=== PATIENT | male | born 1995 | race Caucasian/White ===

== ENCOUNTER 2019-06-29 21:50 | Emergency (ER) | payer MEDICAID, SELFPAY ==
--- NOTE | ~2019-06-29 | XR_ITS ---
XR hand LT min 3V 06/29/2019 23:21 Indication: Left second finger pain after slamming hand in car door Procedure: 3 views left hand Comparison: No prior studies for comparison. Findings: There is an oblique extra-articular fracture left second proximal phalanx with approximatel y one third bone width ulnar displacement. No other fracture. No significant soft tissue abnormality. No radiopaque foreign bodies. Impression: 1: Oblique displaced extra-articular fracture left second proximal phalanx. Reviewed, dictated and finalized at location A. Impression: 1: Oblique displaced extra-articular fracture left second proximal phalanx.
[2019-06-29 21:57] VITALS: BP 127/98; PULSE 94; RESP 16; TEMP 36.9; O2SAT 97
--- NOTE | 2019-06-29 23:17 | PC.NURSE ---
Upon receiving bedside report from DORYS Daniel, patient was on the phone and stated you guys can wait right there. I am on a very important phone call right now and since I have been waiting on a doctor you can wait too. ED charge nurse Lilian notified.
--- NOTE | 2019-06-29 23:40 | ED.UPPEXIN ---
HPI - Extremity Injury (Upper) General Chief Complaint: Extremity Injury, Upper Stated Complaint: BROKEN L INDEX FINGER Time Seen by Provider: 06/29/19 23:32 Source: patient Mode of arrival: ambulatory Limitations: no limitations History of Present Illness complaint: injury to: finger (left index) Other injuries: none Related Data Home Medications Medication Instructions Recorded Confirmed No Home Medications 06/29/19 06/29/19 Allergies Allergy/AdvReac Type Severity Reaction Status Date / Time cefuroxime Allergy Mild Unknown Verified 06/29/19 22:03 amoxicillin Allergy Unknown Unknown Verified 06/29/19 22:03 Sulfa (Sulfonamide Allergy Unknown Anaphylaxis Verified 06/29/19 22:03 Antibiotics) Review of Systems Review of Systems: All systems reviewed & are unremarkable except as noted in HPI and below PMFSH Past Medical History Medical History (Updated 06/29/19 @ 23:46 by Marce Velasquez MD) No significant past medical history Surgical History Surgical History (Updated 06/29/19 @ 23:42 by Marce Velasquez MD) No significant past surgical history Family History Family History (Updated 10/25/13 @ 07:13 by DOCTOR UNKNOWN) Grandparent Hypertension Father Family history of malignant neoplasm Other Diabetes mellitus Family history of heart disease in male family member before age 55 Social History Social History (Updated 06/29/19 @ 23:43 by Marce Velasquez MD) Smoking status: Current some day smoker Substance use type: marijuana Exam Const: General: cooperative, no acute distress and alert Nutritional Appearance: well nourished Orientation/consciousness: patient oriented x3 Limitations: no limitations Resp: Effort & Inspection: normal respiratory effort Skin: General skin exam: normal color Neuro: General: patient oriented x3 Cognition (Neuro): normal cognition Speech: normal speech Extrem: General: full ROM and no clubbing, cyanosis or edema Left upper extremity: hand tenderness of the 2nd digit and swelling of the 2nd digit Psych: Mental Status: mental status grossly normal Affect: normal affect Attitude: cooperative Course Course Emergency Course: Patient advised diagnosis of left index finger fracture of the proximal phalanx. Splint applied. Patient given pain medicine and will be referred to hand surgery for follow-up care Vital Signs Vital signs: Vital Signs Temperature 98.4 F 06/29/19 21:57 Pulse Rate 94 06/29/19 21:57 Respiratory Rate 16 06/29/19 21:57 Blood Pressure 127/98 H 06/29/19 21:57 Pulse Oximetry 97 06/29/19 21:57 Temperature 98.4 F 06/29/19 21:57 Pulse Rate 94 06/29/19 21:57 Respiratory Rate 16 06/29/19 21:57 Blood Pressure 127/98 H 06/29/19 21:57 Pulse Oximetry 97 06/29/19 21:57 Procedures Orthopedic Splinting/Casting Injury #1: Side: left Upper Extremity Injury Location: finger (2nd) Upper Extremity Immobilizer: aluminum form splint Splint: prefabricated Pre-Formed: metal foam finger splint Pre-Procedure Neuro Vascular Exam: normal Post-Procedure Neuro Vascular Exam: normal MDM - Extremity Injury (Upper) Imaging Data Radiologist's impression: ITS Impressions Hand X-Ray 06/29/19 23:28 Impression: 1: Oblique displaced extra-articular fracture left second proximal phalanx. Critical Care Time Critical Care Time Critical Care Time: No Discharge Plan Discharge Clinical Impression: Fracture of finger of left hand Qualifiers: Encounter type: initial encounter Finger: index finger Fracture type: closed Phalanx: proximal Fracture alignment: displaced Qualified Code(s): S62.611A - Displaced fracture of proximal phalanx of left index finger, initial encounter for closed fracture Patient Disposition: Home, Self-Care Condition: Stable Instructions: Finger Fracture (ED) Additional Instructions: Wear splint. Ice
[2019-06-29] MEDS: ACETAMINOPHEN 500 MG TABLET 1000 MG PO (23:53)
[2019-06-29] MEDS: IBUPROFEN 600 MG TABLET PO (23:54)
[2019-06-30] VITALS: BP 135/91; PULSE 86; RESP 14; TEMP 36.4; O2SAT 95
[2019-06-30 00:17] VITALS: TEMP 36.4
== END 2019-06-30 00:05 | disposition home or self-care (01) ==
PROVIDERS: Emergency Provider Emergency Medicine; PCP Family Medicine
DX: S62.611A Displaced fracture of proximal phalanx of left index finger, initial encounter for closed fracture (principal); F17.200 Nicotine dependence, unspecified, uncomplicated; X58.XXXA Exposure to other specified factors, initial encounter
CPT/HCPCS: 29130; 73130; 99284; A9270

== ENCOUNTER 2019-07-05 00:35 | Day surgery (SDC) | payer MEDICAID, SELFPAY ==
[2019-07-04 14:36] VITALS: BMI 28.4
--- NOTE | 2019-07-04 17:21 | HP_ITS ---
DATE OF SERVICE: 07/05/2019 PREOPERATIVE DIAGNOSIS: Closed displaced extra-articular fracture of the shaft of the left index proximal phalanx. HISTORY: The patient is 23. He is a right-hand dominant male who was at home on June 28 when his left index finger was fractured in a car door. There were no lacerations. He was placed in a bivalve splint and sent for followup. The bivalve splint is barely long enough to support the fracture. The finger is somewhat swollen and we have elected to operate on this after reviewing the x-rays together. It appears that there is no comminution and that a couple of screws would be very beneficial and he could start early range of motion. The benefits of this were made clear to him. The possibility of stiff finger is of course possible despite surgery. There is some possibility of rotatory deformity as well and infection and osteomyelitis. He would like to have this fixed and get back to work as soon as possible. PAST MEDICAL AND SURGICAL HISTORY: He states himself to be allergic to sulfa. He recalls as a small child having his throat swell up to that medication. We noted on his electronic medical record, there is also listed allergy to amoxicillin and cefuroxime. The patient has no recollection of ever having taken those. He does not take any medication on a regular basis. He has not had any prior surgery. He does not list any chronic ailments. He is a nonsmoker. He does admit to some depression and anxiety. FAMILY HISTORY: Noncontributory. SOCIAL HISTORY: Lives in [place]. 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 He resides in [place] with a roommate. PHYSICAL EXAMINATION: GENERAL: He is pleasant and anxious young man, no acute distress. He is 5 feet 5 inches, weighs 175 pounds. He is very informative. HEENT: Exam is unremarkable. CHEST: Clear to auscultation. HEART: Regular rate and rhythm by palpation. ABDOMEN: Soft, nontender. EXTREMITIES: Appear normal, but the right index is very tender and somewhat bruised, and is painful to range of motion actively or passively. DIAGNOSTIC DATA: The x-rays reveal the oblique fracture of the shaft of the proximal phalanx of the left index finger. DIAGNOSIS: Extra-articular, displaced, closed fracture of the left index finger, proximal phalanx. PLAN: The plan is open reduction and internal fixation. D I MT: Steven HERNANDEZ
--- NOTE | ~2019-07-05 | XR_ITS ---
EXAMINATION: XR surgery orthopedic DATE: 07/05/2019 14:07 INDICATION: ORIF left index finger fracture TECHNIQUE: 6 fluoroscopic spot images of the left second proximal phalanx were obtained during proced ure performed by Dr. Cottrell. Radiologist was not present for the imaging or procedure. The amount of f luoroscopy time used during this procedure was 0.5 minutes. COMPARISON: 06/29/2019 FINDINGS: Initial scouts image demonstrates 2 cortical widths ulnar displacement, mild ulnar angulation and julia ral millimeter of the proximal migration of an oblique extra articular fracture at the distal diaphys is of the left second proximal phalanx. Subsequent images demonstrate reduction of the fracture to ne ar-anatomic alignment and fixation with a pair of screws. No other fractures identified. Joint spaces appear normal. IMPRESSION: 1. Near-anatomic alignment post reduction and screw fixation of an oblique extra articular fracture o f the distal left second proximal phalanx. Reviewed, dictated and finalized at location A. IMPRESSION: 1. Near-anatomic alignment post reduction and screw fixation of an oblique extr a articular fracture of the distal left second proximal phalanx.
--- NOTE | 2019-07-05 11:20 | WPDANESEPPF ---
Anes - Initial Pre Proc Eval Procedure: Operation Date: 07/05/19 13:00 Proposed Procedures p Open Reduction Internal Fixation Proximal Phalanx Left Index - Pranav Cottrell MD Date/Time: 07/05/19 11:20 Surgeon: Pranav Cottrell MD Pre Op Diagnosis: Fx Left Proximal Phalanx Index Patient Data Age: 23 Gender: M Height: 5 ft 6 in Weight: 80 kg Allergies Allergy/AdvReac Type Severity Reaction Status Date / Time Sulfa (Sulfonamide Allergy Severe Anaphylaxis Verified 07/04/19 14:34 Antibiotics) cefuroxime Allergy Mild Unknown Verified 07/04/19 14:34 amoxicillin Allergy Unknown Unknown Verified 07/04/19 14:34 Home Medications Medication Instructions Recorded Confirmed Type No Home Medications 06/29/19 07/04/19 History Patient hx anesthesia problems: none Family hx anesthesia problems: none PMFSH Past Medical History Medical History No significant past medical history Surgical History Surgical History No significant past surgical history Family History Family History Grandparent Hypertension Father Family history of malignant neoplasm Other Diabetes mellitus Family history of heart disease in male family member before age 55 Social History Social History Smoking status: Current some day smoker Substance use type: marijuana Gender identity (if verbalized by the patient): Male Anes - Eval Final PreProcedure Day of Procedure 07/05/19 11:20 Patient weight: overweight Heart: regular rate and rhythm Lungs: clear to auscultation Airway: Mallampati scale class II Neurological: alert and oriented Last oral intake: >/= 8 hours ASA classification: II Emergent: no Anesthetic plan: proceed Anesthesia type and monitoring: general LMA and standard monitoring Informed Consent: The patient's anesthetic plan and its attendant risks and benefits were discussed with the patient/family/POA. Questions were solicited and answers provided to the satisfaction of the patient/family/POA.
[2019-07-05 11:35] VITALS: BP 128/79; PULSE 89; RESP 18; TEMP 36.3; O2SAT 96
--- NOTE | 2019-07-05 11:46 | WPDHPUPDATE1 ---
History and Physical Update Update Date/Time: 07/05/19 11:46 History and Physical has been reviewed, including an updated exam of the patient. There are NO changes in the patient's condition. Risks, benefits, and alternatives have been discussed and questions answered. Patient agrees to proceed with procedure.
--- NOTE | 2019-07-05 11:47 | WPDHPUPDATE1 ---
History and Physical Update Update Date/Time: 07/05/19 11:47 History and Physical has been reviewed, including an updated exam of the patient. There are NO changes in the patient's condition. Risks, benefits, and alternatives have been discussed and questions answered. Patient agrees to proceed with procedure.
[2019-07-05] MEDS: CLINDAMYCIN 900 MG/NS 50 ML 900 MG/50 ML PIGGYBACK 50 MG IVPB (12:27)
[2019-07-05] MEDS: LIDO 1%/EPINEPHRINE 1:100,000 20 ML VIAL INFILTRATE (12:53)
[2019-07-05] MEDS: BACITRACIN OINTMENT 15 GM TUBE 1 APPLIC TOPICAL (12:54)
[2019-07-05] MEDS: LACTATED RINGERS 1,000 ML 30 ML IV CONT (13:35)
--- NOTE | 2019-07-05 13:49 | SUR.OPER ---
Dr. Cottrell made aware of 1 hour tourniquet time
[2019-07-05 14:15] VITALS: BP 155/83; PULSE 108; RESP 18; TEMP 36.6; O2SAT 95
[2019-07-05 14:30] VITALS: BP 116/75; PULSE 95; RESP 18; TEMP 36.6; O2SAT 98
[2019-07-05 14:45] VITALS: BP 125/67; PULSE 86; RESP 16; TEMP 36.6; O2SAT 100
[2019-07-05 14:46] VITALS: BP 124/87; PULSE 78; RESP 18; O2SAT 100
[2019-07-05 15:15] VITALS: BP 122/74; PULSE 76; RESP 16
--- NOTE | 2019-07-05 16:03 | SUR.PHASEII ---
PAPER D/C INSTRUCTIONS DONE RE:MEDITECH DOWN TIME
--- NOTE | 2019-07-05 18:05 | PM.PROC ---
Procedure Note - Detailed Date of procedure: 07/05/19 Pre-op diagnosis: Fx Left Proximal Phalanx Index Closed, displaced, fracture of the shaft of the proximal phalanx left index finger Post-op diagnosis: same Procedure performed: open reduction and internal lag screw fixation of the displaced fracture of the shaft of the proximal phalanx of the left index finger Description of procedure: The fractured digit was marked on the patient's hand in the holding pablo. The patient had been given 900 mg of clindamycin IV while awaiting his surgery. He was taken into the operating room and placed supine on the operating table. A time-out was held and confirmed. He was given general endotracheal anesthesia. The left hand was prepped and draped in the usual fashion. The digit was imaged with the C-arm identifying the fracture and confirming the plane and direction of the fracture line. The digit was anesthetized with 1% lidocaine with epinephrine on the dorsal and palmar aspect. The tourniquet was inflated to 250 mmHg. A dorsal midline incision was made from the proximal 3rd of this phalanx extending to just onto the proximal interphalangeal joint. The very broad extensor tendon was split over the fracture which was palpable through the tendon. The thick edematous periosteum was debrided away from the fracture line at both ends and fracture clot was removed from within the fracture. A small sliver of bone was free-floating and belonged to the dorsal aspect of the middle of the fracture. This fragment was set aside until the end of the fixation. the fracture was fairly easily reduced and was clamped with 2 small bone clamps. The fracture was fixed with 2 lag screws from the modular handset each 1.3 mm in diameter. Appropriate positioning and length of the screws was confirmed with C-arm images. The wound was irrigated with saline. The extensor tendon was repaired with interrupted 4-0 Prolene sutures. The skin was closed with running intradermal 3-0 Vicryl suture. 10 milliliter of 0.5% Marcaine with epinephrine were injected on the palmar and dorsal aspect. The digit and hand were wrapped in a bulky soft gauze dressing with Coban wrap. The patient was discharged from the operating room in stable condition. He will be discharged with instructions in wound care and follow-up and a prescription for hydrocodone / APAP 7.5/325 number 14 Surgeon: Pranav Cottrell MD
== END 2019-07-05 15:15 | disposition home or self-care (01) ==
PROVIDERS: PCP Family Medicine; Visit Provider Plastic Surgery
PROC: (CPT 26735; principal; 2019-07-05 13:00)
DX: S62.611A Displaced fracture of proximal phalanx of left index finger, initial encounter for closed fracture (principal); W23.0XXA Caught, crushed, jammed, or pinched between moving objects, initial encounter
CPT/HCPCS: 26735; A9270; C1713; J2250; J2405; J2704; J3010; J7120

== ENCOUNTER 2024-10-26 08:07 | Emergency (ER) | payer BC, SELFPAY ==
[2024-10-26 08:19] VITALS: BP 124/77; PULSE 78; RESP 16; TEMP 36.7; O2SAT 97
--- NOTE | 2024-10-26 08:25 | ED.URI ---
HPI - URI/Sore Throat General Chief Complaint: Upper Respiratory Infection Stated Complaint: COUGH/CONGESTION/SOB Time Seen by Provider: 10/26/24 08:26 Source: patient Mode of arrival: ambulatory Limitations: no limitations History of Present Illness HPI Narrative: 28 yo M presents with cough, chest congestion for 1 wk. symptoms worse past 2 days, SOB with exertion, coughing all night. Sputum brownish-yellow. All systems reviewed and negative except as noted above. Related Data Allergies Allergy/AdvReac Type Severity Reaction Status Date / Time Sulfa (Sulfonamide Allergy Severe Anaphylaxis Verified 10/26/24 08:25 Antibiotics) cefuroxime Allergy Mild Unknown Verified 10/26/24 08:25 amoxicillin Allergy Unknown Unknown Verified 10/26/24 08:25 [facility] Past Medical History Medical History Acute sinusitis, unspecified Adult BMI 27.0-27.9 kg/sq m BMI 26.0-26.9,adult BMI 28.0-28.9,adult Chronic midline thoracic back pain Dietary counseling and surveillance (11/15/16) Fever blister Muscle spasm No significant past medical history Surgical History Surgical History No significant past surgical history Family History Family History Grandparent Hypertension Father Family history of malignant neoplasm Mother No problems noted. Sibling No problems noted. Other Diabetes mellitus Family history of heart disease in male family member before age 55 Social History Social History Smoking status: Current every day smoker (vape and mj) Tobacco type: e-cigarettes/vaping Second hand tobacco smoke exposure: No Alcohol intake: current Substance use: current Substance use type: marijuana Lack of Transportation: No Lack of Food: Never True Current Housing: I Have Housing Concerned About Future Housing: No Difficulty Paying Gas/Electric Bills: No Difficulty Paying for Meds: No Currently Unemployed: No Education: Associate Degree Difficulty w/ Childcare or Family Care: No Living arrangements: with roommate(s) Occupation/Education: occupation 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 There is no relevant family history pertinent to the presenting complaint. Exam Narrative: GENERAL: This is a well-nourished, well-developed patient, in no apparent distress. HEAD: normocephalic, atraumatic. EYES: PERRL. Sclera clear/white. Vision is grossly intact. EARS: External ears normal, auditory canals clear and without drainage, TMs normal without perforation. Hearing grossly intact. NOSE: External nose normal with no obvious nasal discharge, nares without redness, no rhinorrhea. THROAT: Mucous membranes moist, posterior pharynx clear. NECK: Neck supple, non-tender without lymphadenopathy, masses or thyromegaly. CARDIOVASCULAR: Regular rate and rhythm without murmurs, gallops, or rubs. RESPIRATORY: Coarse on expiration throughout all lung grady. Breath sounds equal bilaterally. No wheezes, rales, or rhonchi. SKIN: warm, Dry, intact with no suspicious lesions or rash, good texture and turgor. NEURO: awake, alert, and oriented to person, place and time. There were no obvious focal neurologic abnormalities. EXTREMITIES: No joint tenderness, effusion, or edema noted. Course Course Level of Care: Express Care Visit Vital Signs Vital signs: Reviewed MDM - URI/Sore Throat MDM Narrative Medical decision making narrative: Recommended chest x-ray due to coarse lung sounds, shortness of breath with exertion. Patient stated he wanted to avoid radiation. Will treat with antibiotic as precaution. Patient agrees with plan of care. Differential Diagnosis Differential diagnosis: Likely upper respiratory infection and bronchitis Discharge Plan Discharge Clinical Impression: Acute bronchitis Patient Disposition: Home Condition: Stable Instructions: Antibiotic Form, Acute Bronchitis (ED) Additional Instructions: Take medications as prescribed. Take Tylenol or ibuprofen every 6-8 hours as needed for fever and pain. Drink at least 64 oz of water a day. See your doctor if symptoms are not improving. Patient Language: Greek Prescriptions: New azithromycin 250 mg tablet See Rx Instructions .ROUTE .COMPLEX Qty: 6 0RF Rx Instructions: For 250 mg dose pack: take 500 mg today (day 1), then 250 mg for 4 days (days 2-5) benzonatate 200 mg capsule 200 mg PO TID PRN (Reason: cough) Qty: 20 0RF albuterol sulfate 90 mcg/actuation HFA aerosol inhaler 2 puff inhalation Q4-6H PRN (Reason: shortness of breath or wheezing) Qty: 8.5 0RF prednisone 20 mg tablet 40 mg PO DAILY 5 Days Qty: 10 0RF No Action buspirone 10 mg tablet 10 mg PO BID Qty: 60 0RF albuterol sulfate 90 mcg/actuation HFA aerosol inhaler 2 inh inhalation Q4H Qty: 6.7 0RF valacyclovir [Valtrex] 1 gram tablet 2,000 mg PO Q12H Qty: 4 0RF sertraline [Zoloft] 25 mg tablet 25 mg PO DAILY Qty: 30 2RF Follow-up/Referrals: Eddy Wiggins MD [Primary Care Provider, Family Practice] Stand Alone Forms: Work/School Release IP Time of Disposition: 08:32
== END 2024-10-26 08:36 | disposition home or self-care (01) ==
PROVIDERS: Emergency Provider Nurse Practitioner Family; PCP Family Medicine
DX: J40 Bronchitis, not specified as acute or chronic (principal); F17.290 Nicotine dependence, other tobacco product, uncomplicated
CPT/HCPCS: 99213; G0463

== ENCOUNTER 2024-10-30 16:11 | Emergency (ER) | payer BC, SELFPAY ==
--- NOTE | 2024-10-30 16:14 | ED_ITS ---
HPI - URI/Sore Throat General Chief Complaint: Upper Respiratory Infection Stated Complaint: Bronchitis Time Seen by Provider: 10/30/24 16:16 Source: patient, RN notes reviewed and old records reviewed Mode of arrival: ambulatory Limitations: no limitations History of Present Illness HPI Narrative: 28-year-old male presents to the [facility] with complaints of continued cough. Was evaluated on October 22 was prescribed azithromycin, prednisone, albuterol and Tessalon Perles. Patient returns concerned that he is better but the cough is not completely gone. Requesting refills of the azithromycin and prednisone. Patient has not tried [id number] products Related Data Allergies Allergy/AdvReac Type Severity Reaction Status Date / Time Sulfa (Sulfonamide Allergy Severe Anaphylaxis Verified 10/30/24 16:19 Antibiotics) cefuroxime Allergy Mild Unknown Verified 10/30/24 16:19 amoxicillin Allergy Unknown Unknown Verified 10/30/24 16:19 Review of Systems Review of Systems: All systems reviewed & are unremarkable except as noted in HPI and below Constitutional: Constitutional: Reports no additional constitutional complaints ENT: Reports system reviewed and no additional complaints, except as documented Cardiovascular: Cardiovascular: Reports no additional cardiovascular complaints, Denies chest pain and Denies dyspnea Respiratory: Respiratory: Reports as per HPI, Denies chest congestion, Reports cough and Denies dyspnea Musculoskeletal: Musculoskeletal: Reports no additional musculoskeletal complaints Integumentary/Breasts: Skin/Breast: Reports system reviewed and no additional complaints, except as docu PMFSH Past Medical History Medical History BMI 26.0-26.9,adult Adult BMI 27.0-27.9 kg/sq m BMI 28.0-28.9,adult Acute sinusitis, unspecified Chronic midline thoracic back pain Dietary counseling and surveillance (11/15/16) Fever blister Muscle spasm No significant past medical history Surgical History Surgical History No significant past surgical history Family History Family History Grandparent Hypertension Father Family history of malignant neoplasm Mother No problems noted. Sibling No problems noted. Other Diabetes mellitus Family history of heart disease in male family member before age 55 Social History Social History Smoking status: Current every day smoker (vape and mj) Tobacco type: e-cigarettes/vaping Second hand tobacco smoke exposure: No Alcohol intake: current Substance use: current Substance use type: marijuana Lack of Transportation: No Lack of Food: Never True Current Housing: I Have Housing Concerned About Future Housing: No Difficulty Paying Gas/Electric Bills: No Difficulty Paying for Meds: No Currently Unemployed: No Education: Associate Degree Difficulty w/ Childcare or Family Care: No Living arrangements: with roommate(s) Occupation/Education: occupation 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 There is no relevant family history pertinent to the patient complaint. Exam Const: General: cooperative, healthy appearing, comfortable, no acute distress, well developed, alert and well nourished Nutritional Appearance: well nourished Orientation/consciousness: patient oriented x3 Limitations: no limitations HENMT: Head: normal to inspection Ears: hearing grossly normal bilaterally, external ears normal, TM's normal bilaterally, EAC's normal, mastoids normal and no periauricular adenopathy Mouth: Yes Normal oral and palatal mucosa present, Yes lip normal, Yes tongue normal and Yes moist mucous membranes Throat: posterior oropharynx normal, uvula midline and no uvular edema Eyes: General: appearance normal, both eyes and all related structures Alignment and Position: alignment normal Neck: Neck: normal visual inspection, full ROM, no lymphadenopathy and no meningeal signs Chest: Chest palpation & inspection: normal inspection of the chest Resp: Effort & Inspection: normal respiratory effort and able to speak in complete sentences Auscultation: clear to auscultation bilaterally, no crackles, no rales, no rhonchi and wheezes expiratory wheezes (Left lower mild expiratory) Cardio: Rate: regular rate Skin: General skin exam: normal color and no rashes or lesions noted Neuro: General: patient oriented x3, gait normal, moves all extremities and no meningeal signs Cognition (Neuro): normal cognition Speech: normal speech Gait exam (Neuro): Normal gait present Extrem: General: normal to inspection, full ROM, capillary refill normal and normal gait Psych: Appearance: grossly normal and well kempt Mental Status: mental status grossly normal Speech and movement: Normal speech and movement present and Clear speech present Affect: normal affect Attitude: cooperative Course Course Level of Care: Express Care Visit Vital Signs Vital signs: Vital Signs Oxygen Delivery Room Air 10/30/24 16:15 Temperature 98 F 10/30/24 16:17 Pulse Rate 100 10/30/24 16:17 Respiratory Rate 16 10/30/24 16:17 Blood Pressure 142/89 H 10/30/24 16:17 Pulse Oximetry 99 10/30/24 16:17 Oxygen Delivery Room Air 10/30/24 16:15 Reviewed MDM - URI/Sore Throat MDM Narrative Medical decision making narrative: Patient returns with continued cough, was treated with albuterol which encourage patient to use Discussed that this could be a viral bronchitis, her discussed what bronchitis means, not necessarily and infection but inflammation. Attempted to explain this to patient. Patient voiced that he really just wanted refills of the antibiotic and steroid. No acute findings other than a mild expiratory wheeze left lower lobe. Patient encouraged to use inhaler Discharge instructions reviewed with patient, as well as provided in writing per nursing staff. The instructions also include specific and strict return/GO TO THE ER as well as f/u information. All questions have been answered, and the patient deny any further questions with discharge and discharge plan. Some parts of this dictation were generated by voice recognition software and may contain typographical and/or grammatical inaccuracies. Differential Diagnosis Differential diagnosis: Likely upper respiratory infection, sinusitis, viral infection, bronchitis, influenza and pharyngitis Critical Care Time Critical Care Time Critical Care Time: No Discharge Plan Discharge Clinical Impression: Bronchitis Patient Disposition: Home Condition: Stable Instructions: Acute Bronchitis (ED) Additional Instructions: It is very important to treat your symptoms. Drink plenty of water, Gatorade, Pedialyte, ice pops or Jell-O. -Alternate Tylenol and Motrin per package directions for fever or pain. You can alternate every 4 hours -Antihistamine medication such as Zyrtec or Claritin daily can help with your symptoms -doing daily nasal irrigations can help relieve pressure your sinuses. Things like a Neti pot -Use Flonase twice a day for 5 days then daily to help reduce the inflammation and dry up your sinuses. -You can also use Mucinex. Be sure to drink plenty of water with this medication at least 8 ounces with every dose and it is important to drink 8 to 1 0 glasses of water per day. Water is a natural decongestant Using the albuterol inhaler can help with the cough and wheezing. -Eat and drink things that are easy to swallow, like tea or soup, or popsicles. -Oral rinses such as: Salt water gargles and/or may use topical anesthetic (eg. Chloraseptic spray) or lozenges to relieve dryness or throat pain). -Frequent hand washing or hand alterations supervisor is one of the best ways to prevent spread of infection. -Using a vaporizer or humidifier at night will also help thin secretions and help with coughing up phlegm. -Follow up with primary care provider in 7-10 days if condition is not improving - For new or worsening symptoms go directly to the nearest ER Patient Language: Estonian Prescriptions: No Action azithromycin 250 mg tablet See Rx Instructions .ROUTE .COMPLEX Qty: 6 0RF Rx Instructions: For 250 mg dose pack: take 500 mg today (day 1), then 250 mg for 4 days (days 2-5) benzonatate 200 mg capsule 200 mg PO TID PRN (Reason: cough) Qty: 20 0RF albuterol sulfate 90 mcg/actuation HFA aerosol inhaler 2 puff inhalation Q4-6H PRN (Reason: shortness of breath or wheezing) Qty: 8.5 0RF prednisone 20 mg tablet 40 mg PO DAILY 5 Days Qty: 10 0RF buspirone 10 mg tablet 10 mg PO BID Qty: 60 0RF albuterol sulfate 90 mcg/actuation HFA aerosol inhaler 2 inh inhalation Q4H Qty: 6.7 0RF valacyclovir [Valtrex] 1 gram tablet 2,000 mg PO Q12H Qty: 4 0RF sertraline [Zoloft] 25 mg tablet 25 mg PO DAILY Qty: 30 2RF Follow-up/Referrals: Keith Dan MD [Physician, Family Practice] PHYSICIAN,CEMENT BREAKER [Primary Care Provider, Internal Medicine] Stand Alone Forms: Work/School Release IP Time of Disposition: 16:26
[2024-10-30 16:17] VITALS: BP 142/89; PULSE 100; RESP 16; TEMP 36.6; O2SAT 99
== END 2024-10-30 16:28 | disposition home or self-care (01) ==
PROVIDERS: Emergency Provider Nurse Practitioner
DX: J40 Bronchitis, not specified as acute or chronic (principal); F17.290 Nicotine dependence, other tobacco product, uncomplicated; F12.90 Cannabis use, unspecified, uncomplicated
CPT/HCPCS: 99211; G0463